=== PATIENT | female | born 1980 | race Caucasian/White ===

== ENCOUNTER → 2018-09-28 | Outpatient (CLI) | payer MEDICARE ==
--- NOTE | 2018-09-29 08:30 | Diagnostic Imaging Report ---
#[id number] - USBRECOMRT ULTRASOUND OF THE RIGHT BREAST : 09/28/2018 Comparison is made to exam dated: 09/28/2018 mammogram - [facility]. Color flow and real-time ultrasound were performed on the entire right breast with scanning in all four quadrants, retroareolar region and the right axilla. -At 9 o'clock 3 cm from the nipple there is an irregular hypoechoic mass with calcification measuring 2.1 x 1.4 x 1.4 cm. This is highly suspcious to represent cancer and biopsy is recommended. -At 6 o'clock 8 cm from the nipple there is a round hypoechoic mass with calcification measuring 0.9 x 0.8 x 0.8 cm. -An enlarged lymph node appearing abnormal without a fatty hilum measures 2.3 x 0.9 x 1.9 cm in the right axilla. IMPRESSION: HIGHLY SUGGESTIVE OF MALIGNANCY Highly suspicious hypoechoic mass at 9 o'clock requires an ultrasound guided biopsy. A phone call was made to the physician and the case discused with Dr. Aguirre. Manohar White Jr., D.O. cw/:09/28/2018 12:27:25 Change Management Analyst: RENATO LEWIS RDMS, [facility] letter sent: Biopsy Required Ultrasound BI-RADS: 5 Highly suggestive of malignancy
--- NOTE | 2018-09-29 08:30 | Diagnostic Imaging Report ---
#[id number] - MGDXBIL #BILATERAL DIGITAL DIAGNOSTIC MAMMOGRAM WITH CAD: 09/28/2018 No prior exams were available for comparison. Current study contains 8 films. The tissue of both breasts is extremely dense, which lowers the sensitivity of mammography. Current study was also evaluated with a Computer Aided Detection (CAD) system. There are diffuse areas of suspicious microcalcifications scattered throughout the right breast. A palpable mass marker at the 9 o'clock position of the right breast with an associated ill defined mass. There is an abnormal enlarged right axillary lymph node measuring 2.5 x 1.5 cm. There is diffuse right breast skin thickening. The left breast is normal. IMPRESSION: HIGHLY SUGGESTIVE OF MALIGNANCY Suspicious areas of microcalcification in the right breast may represent DCIS. Ill defined mass in the right breast 9 o'clock position requires additional evaluation with ultrasound. A phone call was made to the physician and the case discussed with Dr. Aguirre. The patient was notified of these suspicious findings and the need for a biopsy. Manohar White Jr., D.O. cw/:09/28/2018 12:29:00 Manager Storage: Komal JOE(Diane)([place]), [facility] letter sent: Biopsy Required Mammogram BI-RADS: 5 Highly suggestive of malignancy
--- NOTE | 2018-09-29 08:30 | Diagnostic Imaging Report ---
#[id number] - USBRECOMLT ULTRASOUND OF THE LEFT BREAST : 09/28/2018 Comparison is made to exam dated: 09/28/2018 mammogram - [facility]. Color flow and real-time ultrasound were performed on the entire left breast with scanning in all four quadrants, retroareolar region and the right axilla. -There is no cystic or solid mass identified. IMPRESSION: BENIGN There is no sonographic evidence of malignancy. Follow-up with ACR/ACS guidelines. Manohar White Jr., D.O. cw/:09/28/2018 11:44:31 Vending Machine Mechanic: RENATO LEWIS RDMS, [facility] Ultrasound BI-RADS: 2 Benign
== END ==
LOC: MAMMO 08:21
PROVIDERS: ATTEND Emergency Medicine
DX: N63.10 Unspecified lump in the right breast, unspecified quadrant (principal)
CPT/HCPCS: 77066

== ENCOUNTER 2021-12-04 12:46 | Emergency (ER) | payer OTHER ==
[~2021-12-04] VITALS: Ht 167.6 cm; Wt 88.5 kg
[2021-12-04] MEDS ORDERED: KETOROLAC TROMETHAMINE 60 MG/2 ML VIAL IM ONE (13:15)
[2021-12-04] MEDS ORDERED: HYDROCODONE/APAP 5MG-325MG TAB PO ONE (13:15)
[2021-12-04] MEDS ORDERED: KETOROLAC TROMETHAMINE 60 MG/2 ML VIAL ONE (13:33)
[2021-12-04] MEDS ORDERED: HYDROCODONE/APAP 5MG-325MG TAB ONE (13:33)
[2021-12-04] MEDS ORDERED: ACETAMINOPHEN-1 EAC4 PO (15:30)
[2021-12-04 15:38] VITALS: BP 136/79
== END 2021-12-04 15:46 | disposition home or self-care (01) ==
LOC: ER 12:52
DX: S42.291A Other displaced fracture of upper end of right humerus, initial encounter for closed fracture (principal); M89.8X8 Other specified disorders of bone, other site; R60.9 Edema, unspecified; X50.1XXA Overexertion from prolonged static or awkward postures, initial encounter; Y92.89 Other specified places as the place of occurrence of the external cause; Z85.3 Personal history of malignant neoplasm of breast; Z95.1 Presence of aortocoronary bypass graft
CPT/HCPCS: 71045; 93931; 93971; 99284; J1885

== ENCOUNTER 2021-12-10 16:37 | Emergency (ER) | payer SELFPAY ==
[~2021-12-10] VITALS: Ht 167.6 cm; Wt 88.5 kg
[~2021-12-10 16:37] MED LIST: ACETAMINOPHEN-1 EAC4 PO
[2021-12-10] MEDS ORDERED: HYDROCODONE/APAP 10MG-325MG TAB PO ONE (17:15)
== END 2021-12-10 19:21 | disposition home or self-care (01) ==
LOC: ER 16:58
DX: S42.301A Unspecified fracture of shaft of humerus, right arm, initial encounter for closed fracture (principal); X58.XXXA Exposure to other specified factors, initial encounter; Y92.9 Unspecified place or not applicable
CPT/HCPCS: 99283

== ENCOUNTER 2021-12-27 10:28 | Outpatient (RCR) | payer OTHER | END 2021-12-30 | LOC: PT 10:28 | PROVIDERS: ATTEND Physician Assistant | DX: M75.01 Adhesive capsulitis of right shoulder (principal) ==

== ENCOUNTER 2022-01-01 07:44 | Outpatient (RCR) | payer OTHER | END 2022-01-30 | LOC: PT 07:44 | PROVIDERS: ATTEND Physician Assistant | DX: M75.01 Adhesive capsulitis of right shoulder (principal) ==

== ENCOUNTER 2022-08-02 07:06 | Emergency (ER) | payer MEDICARE, OTHER ==
[~2022-08-02] VITALS: Ht 167.6 cm; Wt 88.5 kg
[2022-08-02] MEDS ORDERED: HYDROCODONE/APAP 5MG-325MG TAB PO ONE (08:00)
== END 2022-08-02 09:52 | disposition home or self-care (01) ==
LOC: ER 07:31
DX: M25.531 Pain in right wrist (principal); W18.39XA Other fall on same level, initial encounter; Y93.01 Activity, walking, marching and hiking; Y92.89 Other specified places as the place of occurrence of the external cause; Z85.3 Personal history of malignant neoplasm of breast; Z95.1 Presence of aortocoronary bypass graft
CPT/HCPCS: 99283

== ENCOUNTER 2022-10-09 05:11 | Emergency (ER) | payer OTHER ==
[~2022-10-09] VITALS: Ht 167.6 cm; Wt 88.5 kg
[2022-10-09] MEDS ORDERED: BACITRACIN ZINC 0.9GM TP ONE ×2 (05:17→05:30)
[2022-10-09] MEDS ORDERED: AMOX TR-K CLV1 EAC2 PO (05:18)
[2022-10-09 05:20] VITALS: O2SAT 96
== END 2022-10-09 05:35 | disposition home or self-care (01) ==
LOC: ER 05:17
DX: S51.852A Open bite of left forearm, initial encounter (principal); S50.312A Abrasion of left elbow, initial encounter; W55.01XA Bitten by cat, initial encounter; Z85.3 Personal history of malignant neoplasm of breast
CPT/HCPCS: 99283